=== PATIENT | female | born 1950 | race Caucasian/White ===

== ENCOUNTER 2018-03-05 13:35 | Observation (INO) | payer MEDICARE, BC ==
[~2018-03-05] VITALS: Ht 160 cm; Wt 76.3 kg
[~2018-03-05 13:35] MED LIST: ASPIRIN81 MG PO; ATORVASTATIN CA20 MG PO; BRILINTA90 MG PO; CARVEDILOL12.5 MG PO; FUROSEMIDE40 MG PO; GABAPENTIN300 MG PO; HYDRALAZINE HCL25 MG PO; IRON 100-VITAM1 EACH PO; LEVOTHYROXINE88 MCG PO; NORCO 10-325 T1 EACH PO; NOVOLOG100 UNIT/1; PROBIOTIC WITH1 EACH PO; VITAMIN B12-FO1 EACH PO; VITAMIN D1000 UNI1 PO; biotin
[2018-03-05 14:37] LABS: BASOPHILS % 0.4 % (0.0-1.0); EOSINOPHILS # (AUTO) 0.3 (0.0-0.4); EOSINOPHILS % 3.7 % (0.0-6.0); HEMATOCRIT 33.2 % (34.2-44.1); HEMOGLOBIN 11.2 g/dL (12.0-16.0); LYMPHOCYTES # (AUTO) 2.6 (1.0-3.2); LYMPHOCYTES % 28.4 % (18.0-39.1); MEAN CORPUSCULAR HEMOGLOBIN 32.1 pg (28-32); MEAN CORPUSCULAR HGB CONC 33.7 g/dL (31-35); MEAN CORPUSCULAR VOLUME 95.1 fL (81-99); MONOCYTES # (AUTO) 0.7 (0.2-0.8); MONOCYTES % 7.2 % (4.4-11.3); NEUTROPHILS # (AUTO) 5.5 (2.1-6.9); NEUTROPHILS % 59.6 % (38.7-80.0); PLATELET COUNT 228 x10e3/uL (140-360); RED BLOOD COUNT 3.49 x10e6/uL (3.6-5.1); RED CELL DISTRIBUTION WIDTH 13.6 % (11.7-14.4)
[2018-03-05 14:41] LABS: BILIRUBIN,URINE 1+ (NEGATIVE); CLARITY,URINE SL CLOUDY (CLEAR); COLOR,URINE YELLOW (YELLOW); KETONES,URINE TRACE (NEGATIVE); LEUKOCYTE ESTERASE ,URINE TRACE (NEGATIVE); NITRITE,URINE NEGATIVE (NEGATIVE); PROTEIN,URINE DIPSTICK TRACE (NEGATIVE); URINE UROBILINOGEN 0.2 mg/dL (0.2 - 1)
[2018-03-05 14:43] LABS: AMPHETAMINES SCREEN,URINE NEGATIVE (NEGATIVE); BENZODIAZEPINES SCREEN,URINE NEGATIVE (NEGATIVE); PHENCYCLIDINE SCREEN,URINE NEGATIVE (NEGATIVE)
[2018-03-05 14:47] LABS: RBC,URINE 0-5 /HPF (0-5); WBC,URINE (MAN) 0-5 /HPF (0-5)
[2018-03-05 14:47] LABS: INR 1.21; PROTHROMBIN TIME 14.4 seconds (11.9-14.5)
[2018-03-05 14:48] LABS: PARTIAL THROMBOPLASTIN TIME 28.1 seconds (23.8-35.5)
[2018-03-05 14:48] LABS: AMORPHOUS SEDIMENT,URINE MODERATE (FEW); BACTERIA,URINE MANY /HPF; EPITHELIAL CELLS,URINE MANY /LPF; TRANSITIONAL EPI CELLS,URINE FEW
[2018-03-05 14:54] LABS: ANION GAP 15.8 mmol/L (8-16); CALCIUM 9.4 mg/dL (8.4-10.2); CREATININE, SERUM 2.3 mg/dL (0.57-1.11); POTASSIUM 3.8 mmol/L (3.5-5.1)
[2018-03-05 15:20] LABS: CREATINE KINASE MB 1.7 ng/mL (0-5.0)
--- NOTE | 2018-03-05 15:24 | Diagnostic Imaging Report ---
Exam: Head CT without contrast History: Possible CVA, Comparison studies: None Technique: Axial images were obtained from the skull base to the vertex. Coronal and sagittal images reconstructed from the axial data. Intravenous contrast: None Findings: Scalp: Mild right frontal scalp swelling. Bones: No fractures, blastic or lytic lesions. Brain sulci: Appropriate for age. Ventricles: Normal in size and configuration. No hydrocephalus. Extra-axial spaces: No masses, no fluid collection. Parenchyma: No mass, acute hemorrhage or acute cortical vascular insults. A few hypodensities in the supratentorial white matter are nonspecific but most compatible with chronic microvascular ischemic changes. Sellar/suprasellar region: No abnormalities. Craniocervical junction: Patent foramen magnum. No Chiari one malformation. Incidental findings: Atherosclerotic calcifications in the carotid siphons and intradural vertebral arteries. IMPRESSION: No acute intracranial abnormalities. Mild right frontal scalp swelling without underlying fracture. Chronic findings: 1. Mild generalized volume loss. 2. Mild microvascular ischemic changes. Signed by: Dr. Elia Aranda M.D. on 03/05/2018 3:21 PM
[2018-03-05] MEDS ORDERED: ONDANSETRON HCL INJ 2 MG/ML VIAL IV PRN (16:45)
[2018-03-05] MEDS ORDERED: ASPIRIN 81 MG CHEW TAB PO ONE (16:45)
[2018-03-05] MEDS ORDERED: DEXTROSE 50% SYRINGE 50 ML IV PRN (16:45)
[2018-03-05 18:41] VITALS: BP 129/68
[2018-03-05 19:08] VITALS: BP 95/48
[2018-03-05] MEDS: SODIUM CHLORIDE 0.9% 1000ML 1,000 ML IV SCH (19:13)
[2018-03-05 19:50] VITALS: BP 95/48
[2018-03-05 20:00] VITALS: BP 102/55
[2018-03-05] MEDS: INSULIN REGULAR, HUMAN 100 UNIT/1 ML 3ML VIAL SQ SCH (20:40)
[2018-03-06] VITALS (7 sets, daily range): BP systolic 113–146; BP diastolic 58–77
[2018-03-06] MEDS: SODIUM CHLORIDE 0.9% 1000ML 1,000 ML IV SCH (02:33)
[2018-03-06 02:55] LABS: CREATINE KINASE MB 1.5 ng/mL (0-5.0)
[2018-03-06 05:27] LABS: BASOPHILS % 0.7 % (0.0-1.0); EOSINOPHILS # (AUTO) 0.2 (0.0-0.4); EOSINOPHILS % 3.9 % (0.0-6.0); HEMATOCRIT 27.4 % (34.2-44.1); LYMPHOCYTES # (AUTO) 1.8 (1.0-3.2); LYMPHOCYTES % 33.6 % (18.0-39.1); MEAN CORPUSCULAR HEMOGLOBIN 31.7 pg (28-32); MEAN CORPUSCULAR HGB CONC 32.5 g/dL (31-35); MEAN CORPUSCULAR VOLUME 97.5 fL (81-99); MONOCYTES # (AUTO) 0.5 (0.2-0.8); MONOCYTES % 9.2 % (4.4-11.3); NEUTROPHILS # (AUTO) 2.9 (2.1-6.9); NEUTROPHILS % 52.2 % (38.7-80.0); RED BLOOD COUNT 2.81 x10e6/uL (3.6-5.1); RED CELL DISTRIBUTION WIDTH 13.7 % (11.7-14.4)
[2018-03-06 05:40] LABS: HEMOGLOBIN 8.9 g/dL (12.0-16.0); PLATELET COUNT 152 x10e3/uL (140-360)
[2018-03-06 05:47] LABS: ALBUMIN/GLOBULIN RATIO 0.9 (0.8-2.0); ANION GAP 10.4 mmol/L (8-16); CALCIUM 8.1 mg/dL (8.4-10.2); CREATININE, SERUM 2.3 mg/dL (0.57-1.11); POTASSIUM 4.4 mmol/L (3.5-5.1)
[2018-03-06 07:44] LABS: CREATINE KINASE MB 1.4 ng/mL (0-5.0)
[2018-03-06] MEDS: INSULIN REGULAR, HUMAN 100 UNIT/1 ML 3ML VIAL SQ SCH ×2 (08:30→12:42)
[2018-03-06] MEDS ORDERED: BIOTIN2500 MCG (09:44)
[2018-03-06] MEDS ORDERED: LORAZEPAM INJ 2 MG/ML VIAL IV PRN (10:15)
--- NOTE | 2018-03-06 12:01 | Diagnostic Imaging Report ---
Examination: MRI BRAIN WITHOUT CONTRAST History: Dizziness. Head injury. Comparison studies: Head CT performed March 05, 2018. Technique: Sagittal T2; axial DWI, FLAIR, GRE or SWI, T1, Coronal FLAIR. Intravenous contrast: None Findings: Scalp: No abnormal signal. No masses. Bone marrow: Normal in signal intensity. Brain volume: Mild volume loss. Ventricles: No hydrocephalus. Extra-axial spaces: No abnormalities. Parenchyma: There are scattered patchy areas of T2/FLAIR hyperintensity in the periventricular and subcortical white matter, nonspecific. No masses, hemorrhage, or acute vascular insults. Suprasellar and sellar region: No abnormalities. Craniocervical junction: No abnormalities. The foramen magnum is patent. No Chiari malformations. Vessels: Normal flow-voids in the arteries and sinuses. Additional findings:None. IMPRESSION: 1. No acute intracranial abnormalities. 2. Unchanged mild chronic microvascular ischemic change and volume loss when compared to prior head CT performed March 05, 2018. Signed by: Dr. Octavia Ayers M.D. on 03/06/2018 11:58 AM
--- NOTE | 2018-03-06 13:49 | History and Physical ---
Ms. Hernandez is a pleasant, 67-year-old female who follows up with Dr. Christine because of left plantar foot wound that she has. She returned to the office of Dr. Christine complaining that she stood up earlier today. She got dizzy and fell backwards and hit the right side of her forehead. The patient was admitted to [facility] concerning the fall and evaluation and possible treatment of the reason behind it. On admission, temperature 96.7, blood pressure 102/55, pulse 82, respirations 20. A CT of the head was done, which showed mild generalized volume loss and mild chronic vascular ischemic changes. No acute intracranial abnormalities. Mild right frontal scalp swelling without underlying fractures. Labs were done. White count 5.45, hemoglobin 8.9, platelet count 152. Creatinine is 2.3, sodium 137, potassium 4.4, BUN 35. Urine was positive for opiates, otherwise presumptively negative for other drugs. No microbiology studies were done. PAST MEDICAL HISTORY: Includes coronary artery disease, status post CABG, status post fem-pop, diabetes, hypertension, hyperlipidemia, hypothyroidism, chronic pain, iron deficiency. LABORATORY STUDIES: As mentioned above. MEDICATIONS: List has been reviewed. The patient is currently on insulin, sodium chloride, and Zofran. REVIEW OF SYSTEMS: Feels better. No nausea, vomiting, fever, chills, chest pain, shortness of breath. PHYSICAL EXAMINATION GENERAL: Alert and oriented times 3, in bed comfortable, no acute distress. VITALS: Temperature 96.7, pulse 82, respirations 20, blood pressure 102/55. CV: S1 and S2. CHEST: Equal expansion. No acute distress. Clear to auscultation bilaterally. ABDOMEN: Soft, nontender, in no distress. Bowel sounds are positive in 4 quadrants. HEENT: Moist. No pallor. No JVD. EXTREMITIES: Left foot plantar wound with some serous drainage on the dressing. Surgical wound line noted. No acute distress. History of old toe amputation on the left foot. NEURO: Moves all extremities. No focal deficit noted. Equal strength bilaterally. Speech seems to be at baseline, as I discussed with the patient. ASSESSMENT AND PLAN: A 67-year-old female, status post fall, concern for cerebrovascular accident. CT angiography of the head is as mentioned above. Noted that her creatinine has jumped to 2.3. On a previous admission, her creatinine was originally at 0.08. We got a copy of her home medications. Will give that to the nurse to place the patient on all the home medications. I have discussed the case with Dr. Christine in detail. We have consulted with Dr. Barkley and Dr. Goncalves. Dr. Goncalves seems to be her primary care provider on last admission. Further management of this patient will be based on daily findings on laboratory and physical examination. Again, discussed with Dr. Christine in detail this case. Dictated by: DELFINA Posey Job#: [id number]
[2018-03-06 14:40] LABS: FREE T4 (FREE THYROXINE) 1.08 ng/dL (0.9-1.8); THYROID STIMULATING HORMONE 1.338 uIU/mL (0.350-4.940)
--- NOTE | 2018-03-06 15:07 | Consultation ---
DATE OF CONSULTATION: March 05, 2018 ENDOCRINE CONSULTATION Thank you very much for referring this patient. This is a 67-year-old white female who is referred to me for evaluation of uncontrolled diabetes mellitus. Patient was seen in the ER with complains of dizziness and weakness. She also has a nonhealing ulcer of the foot. Her other medical problems include history of diabetes mellitus, type 2 uncontrolled with complications. She has been on an insulin pump. The pump is not working at this time. Her blood sugars have been in the 250-350 range. Patient also has a history of hypertension and is on several medications. PHYSICAL EXAMINATION GENERAL: Today, the patient is alert, awake and a little bit apprehensive. VITALS: Her heart rate is around 78, blood pressure 128/80 mmHg. HEENT: Essentially unremarkable. Thyroid is palpable. Clinically, she is near euthyroid. CHEST: Bilateral vesicular breathing. She has mild bronchospasm. CARDIOVASCULAR: First and 2nd heart sounds heard. There is no 3rd or 4th heart sound. Ejection systolic murmur of grade 2/6. EXTREMITIES: The patient has evidence of diabetic sensory neuropathy in both lower extremities. She has multiple toe amputations of the left foot. There is a nonhealing ulcer of the foot. Her hemoglobin is 8.9, hematocrit is 27.4, white count is 5.45. Her BUN and creatinine are elevated at 35 and 2.3. CLINICAL IMPRESSION 1. Diabetes mellitus, type 2, uncontrolled with complications: On insulin pump. 2. Nonhealing foot ulcer. 3. Chronic renal failure. 4. Anemia. 5. Hypertension. 6. Rule out cerebrovascular accident. The plan at this time is to do a hemoglobin A1c and thyroid function test. Monitor her blood sugars closely. Will give her the subcutaneous insulin for now, and hold the insulin pump for now. Patient needs extensive education for the pump. Will also do a hemoglobin A1c and thyroid function test. Thanks for referring this patient. I will be following this patient with you. Job#: [id number] [id number]
[2018-03-06] MEDS: INSULIN LISPRO 100 UNIT/1 ML 3ML VIAL SQ SCH ×3 (17:36→20:21)
--- NOTE | 2018-03-06 17:41 | Consultation ---
DATE OF CONSULTATION: March 06, 2018 HISTORY OF PRESENT ILLNESS: Ms. Malena Hernandez is a delightful 67-year-old white female who was admitted by Dr. Christine's office with unstable gait, dizziness and possible presyncopal symptoms. She had an insulin pump which is not working. She sees Dr. Bermeo. She is currently sleeping when I entered the room, arousable and alert. She denies any specific complaints. PAST MEDICAL HISTORY: Type 2 diabetes. Hypothyroidism. Hyperlipidemia. Hypertension. She also claims she has had a normal kidney function in the past. She cannot recall her produce runner but looks like most of her physicians are at [facility]. Her serum creatinine is 2.3. She came in and had a brain MRI and a CT. Please see official report that shows unchanged mild chronic microvascular ischemic changes. On MRI nothing acute. ALLERGIES: AMITRIPTYLINE, MUSCULAR RELAXERS AND VALDECOXIB. CURRENT MEDICATIONS: IV normal saline 125 mL an hour, insulin, lorazepam, ondansetron. SOCIAL HISTORY: Does not smoke or drink. FAMILY HISTORY: Significant for hypertension and type 2 diabetes. PHYSICAL EXAMINATION: GENERAL: Awake, alert and lying supine. No apparent distress. VITALS: Blood pressure of 131/77, pulse rate is 94. Afebrile. Oxygen saturation 100% on room air. HEAD AND NECK: Cornea clear. Mucosa dry. LUNGS: Relatively clear. No rales noted. HEART: S1 and S2 audible. ABDOMEN: Otherwise soft and nontender. LOWER EXTREMITY EXAMINATION: Shows no edema. IMPRESSION: Acute kidney injury, possible underlying nephrosclerosis. The etiology of dizziness and unstable gait exactly unclear, could be hypoglycemia. Patient denies any fever and chills or any urinary complaints suggestive of any urinary tract infection. PLAN: Plan on working up renal insufficiency by obtaining kidney ultrasound, urinalysis, spot urine protein creatinine ratio. Agree with IV normal saline. Blood pressure appears stable. Will monitor patient's kidney function and urine output with you. Order further tests if needed after these basic studies. Job#: [id number]
--- NOTE | 2018-03-06 17:46 | Consultation ---
DATE OF CONSULTATION: INTERNAL MEDICINE CONSULTATION HISTORY OF PRESENT ILLNESS: Patient is a 67-year-old female with past medical history positive for hypertension, diabetes, chronic renal insufficiency. Came to the hospital, sent from Dr. Christine's office because of dizziness. MRI of the head showed no evidence of stroke. She was also found to have cellulitis and a left foot osteomyelitis. She is going to be started on a course of 6 to 8 weeks of IV antibiotic, and a central line will be placed. Also, she was found to have uncontrolled diabetes mellitus type 2. She had an insulin pump. Dr. Christine consulted me for internal medicine. REVIEW OF SYSTEMS CARDIOVASCULAR: No chest pain or palpitation. RESPIRATORY: No shortness of breath, no cough. GASTROINTESTINAL: No nausea, no vomiting, no diarrhea. GENITOURINARY: No frequency, no dysuria. ALLERGIES: SHE IS ALLERGIC TO AMITRIPTYLINE, , AND VALDECOXIB. SOCIAL HISTORY: She does not smoke. She does not drink. PAST MEDICAL HISTORY 1. Positive for diabetes mellitus type 2 with status post insulin pump placement. 2. Hypertension. 3. Chronic renal insufficiency. PHYSICAL EXAMINATION HEART: Shows regular rhythm. Normal S1 and S2 sounds. LUNGS: Clear bilaterally. ABDOMEN: Soft. No tenderness, no distention. EXTREMITIES: Show open wound on the lateral aspect of the left foot with some yellowish drainage. VITAL SIGNS: Blood pressure is 131/77, temperature 97.2, heart rate 94 per minute, respiratory rate is 18 per minute, oxygen saturation 100%. LAB WORK: We have a CBC: White blood count 5.45, hemoglobin 8.9, hematocrit 27.4, platelet count 152,000. ESR of 60. We have a complete metabolic panel with a sodium 137, potassium 4.4, chloride 104, CO2 27, BUN 35, creatinine 2.30, glucose 367, calcium 8.1. Total bilirubin 0.3, AST 18, ALT 12, ALP 99. Troponin 0.005. Total protein 6.2, albumin 3.0, globulin 3.2. MRI of the head showed no evidence of any stroke. FINAL IMPRESSION 1. Left foot wound with osteomyelitis. 2. Uncontrolled diabetes mellitus type 2 with diabetic nephropathy. 3. Chronic renal insufficiency stage 3, most likely secondary to a combination of diabetic and hypertensive nephropathy. 4. Hypertensive nephropathy. 5. Anemia of chronic disease, most likely secondary to chronic renal insufficiency. PLAN OF TREATMENT: Continue normal saline at 100 mL an hour. Continue monitoring blood sugar a.c. and nightly. Continue Levemir 16 units at bedtime, Humalog 8 units before meals, Zofran 4 mg IV q.4 h. as needed. Renal ultrasound is going to be ordered. Diet for a diabetic and renal diet. We are going to order a stool guaiac, iron, TIBC, ferritin, vitamin B12 and folic acid level as part of the workup for anemia. Continue monitoring BUN and creatinine and electrolytes. Antibiotic as per Dr. Christine. Job#: [id number]
[2018-03-06] MEDS ORDERED: INSULIN DETEMIR 100 UNIT/ML PEN SQ SCH (21:00)
[2018-03-07 00:30] VITALS: BP 145/63
[2018-03-07] MEDS: SODIUM CHLORIDE 0.9% 1000ML 1,000 ML IV SCH (03:05)
[2018-03-07 04:40] VITALS: BP 201/82
[2018-03-07 05:29] LABS: ALBUMIN 3.1 g/dL (3.5-5.0); ALBUMIN/GLOBULIN RATIO 0.9 (0.8-2.0); ANION GAP 10.7 mmol/L (8-16); CALCIUM 8.5 mg/dL (8.4-10.2); CREATININE, SERUM 1.35 mg/dL (0.57-1.11); POTASSIUM 4.7 mmol/L (3.5-5.1)
[2018-03-07 07:24] VITALS: BP 154/64
[2018-03-07] MEDS: INSULIN LISPRO 100 UNIT/1 ML 3ML VIAL SQ SCH ×2 (08:26→08:29)
--- NOTE | 2018-03-07 11:22 | Discharge Summary ---
The patient was admitted to [facility] after she complained of dizziness, status post fall and hitting the right side of her head. The patient was admitted to [facility] with concern of CVA. Found to have acute renal insufficiency. Renal specialist, Dr. Barkley, was consulted. Also Dr. Goncalves, who had seen her in the past, was consulted on the case for medical management. Urine culture was supposed to be sent and is still pending. White count improved to 5.45 with a hemoglobin of 8.9 and a platelet count of 152. Sodium was 139, potassium 4.7, creatinine improved to 1.35. MRI of the head was done and showed no acute finding. Also, CT of the head was done, and there was no acute finding. She has mild right frontal scalp swelling without underlying fracture on CT of the head. The patient was treated with IV fluids and continued with home medications. No antibiotics involved on this admission. Unfortunately, the patient left against medical advice this morning. Dictated by: DELFINA Posey NAKUL GALARZA MD Job#: [id number]
--- NOTE | 2018-03-07 15:30 | Consultation ---
DATE OF CONSULTATION: March 06, 2018 HISTORY OF PRESENT ILLNESS: Ms. Hernandez is a 67-year-old right hand dominant woman with past medical history significant for hypertension, hyperlipidemia, diabetes mellitus type 2, coronary artery disease, and peripheral arterial disease admitted to [facility] on March 05, 2018, with dizziness. On the morning in March 05, 2018, the patient was walking through her bedroom when she experienced the abrupt onset of dizziness which is further described as a vertiginous sensation. The patient fell backwards into a recliner. Within a few seconds, she attempted to stand, but fell forward, hitting her forehead against the wall in the light switch. Ms. Hernandez does not endorse chest pain or tightness, palpitations, or shortness of breath prior to the onset of dizziness and the fall. She does not endorse loss of consciousness associated with the fall. The patient does not report a visual field cut or other disturbance, dysarthria, aphasia, facial droop, hemiparesis, hemihypesthesia, worsening gait or balance, or confusion. Ms. Hernandez reports the dizziness resolved within 30 to 60 seconds. It did not recur. Early in the afternoon, the patient attended a scheduled followup appointment with Dr. Christine. Upon hearing of the patient's symptoms that morning, Dr. Christine advised the patient to proceed to [facility] for evaluation and treatment of a possible stroke. REVIEW OF SYSTEMS: Nausea, vomiting, diarrhea, nasal congestion, headache, falls, vertigo. Otherwise, a 12-point review of systems is negative. PAST MEDICAL HISTORY: Hypertension; hyperlipidemia; diabetes mellitus type 2; coronary artery disease; chronic kidney disease, stage unknown; methicillin-resistant Staphylococcus aureus infection; peripheral arterial disease; anemia of chronic disease. PAST SURGICAL HISTORY: Three-vessel CABG, left 2nd toe amputation, bypass for peripheral arterial disease, muscle flap, section, cholecystectomy, bilateral cataract surgeries, multiple dental procedures, tonsillectomy/adenoidectomy, lumbar spine surgery, appendectomy, and foot surgeries. HOSPITALIZATIONS: Surgeries/procedures as listed. FAMILY MEDICAL HISTORY: The patient's paternal and maternal grandparents are . Their medical histories are unknown. The patient's father is from an unknown cancer. He had a stroke as well. Ms. Hernandez's mother is from an unknown cancer. She had diabetes mellitus. The patient had 1 sister who is from complications of lupus. She has 1 brother who is alive and has diabetes mellitus. SOCIAL HISTORY: The patient is a . She graduated high school and attended some college. 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 The patient endorses a remote history of tobacco use, but quit smoking cigarettes 20+ years ago. The patient does not report current or prior alcohol or recreational drug use. HOME MEDICATIONS 1. Aspirin 81 mg by mouth daily. 2. Atorvastatin 40 mg by mouth at bedtime daily. 3. Probiotic 1 capsule by mouth daily. 4. Biotin 5000 mcg by mouth daily. 5. Coreg 12.5 mg by mouth twice daily. 6. Vitamin D3, 1000 units by mouth daily. 7. Vitamin Q13-yixlq acid 1 tablet by mouth daily. 8. Lasix 20 mg by mouth daily. 9. Gabapentin 300 mg by mouth daily. 10. Hydralazine 25 mg by mouth twice daily. 11. [place] 10 per 325 mg 1 tablet by mouth 4 times daily as needed for pain. 12. NovoLog. 13. Iron 100-vitamin C tablet 2 tablets by mouth at bedtime daily. 14. Levothyroxine 88 mcg by mouth Sunday through Sunday. 15. Brilinta 90 mg by mouth twice daily. ALLERGIES: TRICYCLIC ANTIDEPRESSANTS, MUSCLE RELAXANTS, VALDECOXIB. NO KNOWN FOOD ALLERGIES. NO KNOWN ALLERGIES TO LATEX. NO KNOWN ALLERGIES TO IODINE OR OTHER CONTRAST MATERIALS. PHYSICAL EXAMINATION VITAL SIGNS: Height 63 inches, weight 161 pounds. BMI 28.5 kg per meter squared. Blood pressure 146/67 mmHg, pulse 87 beats per minute, respiratory rate 18 breaths per minute, and oxygen saturation 98% on room air. GENERAL: The patient is awake and alert, does not appear distressed. Overweight. HEENT: Normocephalic, atraumatic. Pupils are surgical. Moist mucous membranes. NECK: Supple. No appreciable thyromegaly. No appreciable carotid bruits. CARDIOVASCULAR: S1, S2, regular rate and rhythm. No murmurs, rubs, or gallops. RESPIRATORY: Clear to auscultation bilaterally. No wheezes, rhonchi, or rales. EXTREMITIES: The skin is warm and dry. No clubbing, cyanosis, or edema. The posterior tibial and dorsalis pedis pulses are 1+ and symmetric. SKIN: Cellulitis over the distal left foreleg. NEUROLOGIC Memory/attention: The patient is awake and alert, oriented to person, place, time, and situation. Cranial Nerves: Cranial nerve I: Not tested. Cranial nerves II, III, IV, and : Pupils are surgical, extraocular movements intact. No nystagmus. Cranial nerve V: Sensation to light touch and pinprick is intact in the bilateral V1 through V3 distributions. Strength of the temporalis and masseter muscles is within normal limits. Cranial nerve VII: The face is symmetric as are all facial movements. Strength is within normal limits. Cranial nerve VIII: Hearing is diminished to finger rub bilaterally. Cranial nerve IX, X: The soft palate elevates equally and symmetrically. Cranial nerve XI: Normal strength of the bilateral sternocleidomastoid and trapezius muscles. Cranial nerve XII: The tongue protrudes midline and moves symmetrically from side to side. Strength: Bulk is normal. Strength is 5/5 in the bilateral deltoids, biceps, triceps, wrist flexors and extensors, finger flexors and extensors, intrinsic hand muscles, hip flexors, knee flexors and extensors, ankle dorsiflexion and plantar flexion, and intrinsic foot muscles. Tone is normal. DTRs: Deep tendon reflexes are 1+ and symmetric at the triceps, biceps, and brachioradialis. Deep tendon reflexes are absent and symmetric at the patellas and Achilles. Plantar responses are flexor bilaterally. Sensation: Sensation is intact to light touch and pinprick in both arms and both legs. Cerebellar: Plcldo-ssds-duiiie and heel-mayberry movements are intact without dysmetria or other impairment. Gait: Deferred. Speech: Spontaneous speech is normal without appreciable dysarthria or aphasia. Repetition is intact. Involuntary Movements: None. Pronator drift: None. LABORATORY DATA: Sodium 137, potassium 4.4, chloride 104, carbon dioxide 27, anion gap 10.4, BUN 35, creatinine 2.30. Estimated GFR 21. BUN to creatinine ratio 15. Glucose 367, calcium 8.1, total bilirubin 0.3, AST 18, ALT 12, and alkaline phosphatase 99. Total protein 6.2, albumin 3.0, globulin 3.2, albumin to globulin ratio 0.9. Creatine kinase 61, 46. CK-MB 1.70, 1.50. Troponin-I 0.007, 0.005. C-reactive protein is pending. Hemoglobin A1c is 10.5. TSH 1.3338, free T4 of 1.08. The CBC with differential and platelets reveals a white blood cell count of 5.45 with a normal differential. The hemoglobin and hematocrit are 8.9 and 27.4 respectively. The platelet count is 152,000. Erythrocyte sedimentation rate 60. PT 14.4, INR 1.21, PTT 28.1. Urinalysis is significant for specific gravity of 1.030, trace protein, 2+ glucose, trace ketones, 1+ bilirubin, trace leukocyte esterase, few transitional epithelials cells, many epithelials cells, moderate amorphous sediment, and many urine bacteria. Urine toxicology screen is positive for opiates. DIAGNOSTIC STUDIES: CT of the brain without contrast March 05, 2018: On my review, there is no evidence of recent large territorial ischemia, hemorrhage, mass, or mass effect. There is mild diffuse cerebral atrophy, appropriate for age. There are findings compatible with mild to moderate chronic small-vessel ischemic disease. Mild right frontal scalp swelling is appreciated. MRI of the brain without contrast March 06, 2018: On my review, there is no evidence of recent large territorial ischemia, hemorrhage, mass, or mass effect. There is diffuse cerebral atrophy without lobar dominance, appropriate for age. There are scattered nonspecific T2/flair hyperintensities in the deep white matter compatible with mild chronic small-vessel ischemic disease. ASSESSMENT AND PLAN: Ms. Hernandez is a 67-year-old right hand dominant woman with past medical history significant for hypertension, hyperlipidemia, diabetes mellitus type 2, coronary artery disease, and peripheral arterial disease, admitted to [facility] on March 05, 2018, following a brief episode of vertigo resulting in 2 falls as described in the history of present illness. At present, the patient's neurological examination is nonfocal. Her laboratory data and other diagnostic studies have been reviewed and are documented above. As detailed above, there is no evidence of recent large territorial ischemia, hemorrhage, mass, or mass effect on the MRI of the brain without contrast. Given the very brief nature of the symptoms (less than 1 minute) and the absence of other neurological symptoms, it is unlikely the patient experienced a transient ischemic attack or stroke. At my request, orthostatic vital signs were performed and were positive with the systolic blood pressure dropping approximately 20 mmHg from the lying to the sitting position. Ift is possible volume depletion caused transient dizziness resulting in the 2 falls described in the history of present illness. It is recommended Ms. Hernandez stay well hydrated. There are no further recommendations from the neurology service at this time. Please call again with any questions or concerns. Thank you for this consultation. TIME SPENT: 70 minutes. Job#: [id number]
== END 2018-03-07 08:50 | disposition left against medical advice (07) ==
LOC: ER 13:35 → ERHOLD 17:07 → IMCU 18:12
PROVIDERS: ADMIT Internal Medicine Infectious Disease; ATTEND Internal Medicine Infectious Disease
DX: N17.9 Acute kidney failure, unspecified (principal); I25.10 Atherosclerotic heart disease of native coronary artery without angina pectoris; Z95.1 Presence of aortocoronary bypass graft; E03.9 Hypothyroidism, unspecified; Z79.4 Long term (current) use of insulin; W18.39XA Other fall on same level, initial encounter; Y93.89 Activity, other specified; Y92.019 Unspecified place in single-family (private) house as the place of occurrence of the external cause; E11.22 Type 2 diabetes mellitus with diabetic chronic kidney disease; E11.65 Type 2 diabetes mellitus with hyperglycemia; I12.9 Hypertensive chronic kidney disease with stage 1 through stage 4 chronic kidney disease, or unspecified chronic kidney disease; Z96.41 Presence of insulin pump (external) (internal); E11.621 Type 2 diabetes mellitus with foot ulcer; D64.9 Anemia, unspecified; E11.42 Type 2 diabetes mellitus with diabetic polyneuropathy; E11.69 Type 2 diabetes mellitus with other specified complication; M86.8X7 Other osteomyelitis, ankle and foot; N18.3 Chronic kidney disease, stage 3 (moderate); D63.1 Anemia in chronic kidney disease; S00.03XA Contusion of scalp, initial encounter
CPT/HCPCS: 36415 ×3; 70450; 70551; 80053 ×3; 80307; 81001; 82550 ×2; 82553 ×2; 82948 ×3; 83036; 84439; 84443; 84484 ×2; 85025 ×2; 85610; 85651; 85730; 86140; 87086; 93005; 99284; G0378 ×3; J2060; J7030 ×3